=== PATIENT | male | born 1965 | race Caucasian/White ===

== ENCOUNTER 2018-12-15 16:20 | Emergency (ER) | payer OTHER ==
[2018-12-15 16:40] VITALS: PULSE 90; RESP 20; TEMP 98.2; O2SAT 98
--- NOTE | 2018-12-15 17:11 | ED PDOC ---
HPI: General Adult Time Seen by Provider: 12/15/18 17:05 Chief Complaint (Nursing): ENT Problem Chief Complaint (Provider): ENT Problem History Per: Patient History/Exam Limitations: no limitations Onset/Duration Of Symptoms: Days (x2-3 weeks) Current Symptoms Are (Timing): Still Present Additional Complaint(s): 53 year old male presents to the ED with left ear pain and difficulty hearing. Patient notes mild nasal congestion but denies any fever or chills. He has attempted to remove ear wax with q tip. PMD: none provided Past Medical History Reviewed: Historical Data, Nursing Documentation, Vital Signs Vital Signs: Last Vital Signs Temp 98.2 F 12/15/18 16:37 Pulse 90 12/15/18 16:37 Resp 20 12/15/18 16:37 BP Pulse Ox 98 12/15/18 16:37 - Family History Family History: States: Unknown Family Hx - Immunization History Hx Tetanus Toxoid Vaccination: No Hx Influenza Vaccination: No Hx Pneumococcal Vaccination: No - Home Medications Home Medications: Ambulatory Orders Medication Instructions Recorded Loratadine [Claritin 24Hr] 10 mg PO DAILY #30 tab 01/08/14 Mometasone Furoate [Nasonex] 2 spray NS DAILY #1 spr 01/08/14 Pepto Diarrhea Control 04/01/14 Carbamide Peroxide [Debrox Ear 5 drop AU BID #1 bottle 09/26/14 Drops] Carbamide Peroxide [Debrox Ear 10 drop BID #1 bottle 12/15/18 Drops] Cetirizine HCl [Zyrtec] 10 mg PO DAILY #15 tab.rapdis 12/15/18 Fluticasone Nasal [Flonase] 2 spray NS ONCE #1 bottle 12/15/18 - Allergies Allergies/Adverse Reactions: Allergies Allergy/AdvReac Type Severity Reaction Status Date / Time No Known Allergies Allergy Verified 12/15/18 16:37 Review of Systems ROS Statement: Except As Marked, All Systems Reviewed And Found Negative ENT: Positive for: Ear Pain (and difficulty hearing) Physical Exam - Reviewed Nursing Documentation Reviewed: Yes Vital Signs Reviewed: Yes - Physical Exam Appears: Positive for: No Acute Distress Head Exam: Positive for: ATRAUMATIC, NORMOCEPHALIC Skin: Positive for: Normal Color, Warm, Dry Eye Exam: Positive for: Normal appearance, EOMI, PERRL ENT: Positive for: Other (cerumen impacted, moderate cerumen removed with curette, bleeding noted along ear canal ) Respiratory: Positive for: Normal Breath Sounds Extremity: Positive for: Normal ROM (upper and lower) Neurological/Psych: Positive for: Awake, Alert, Oriented - ECG O2 Sat by Pulse Oximetry: 98 (RA) Pulse Ox Interpretation: Normal Medical Decision Making Medical Decision Making: Scribe Attestation: Documented by Rubi Justice acting as a scribe for Richar Caldear PA-C. Provider Scribe Attestation: All medical record entries made by the Scribe were at my direction and personally dictated by me. I have reviewed the chart and agree that the record accurately reflects my personal performance of the history, physical exam, medical decision making, and the department course for this patient. I have also personally directed, reviewed, and agree with the discharge instructions and disposition. Disposition - Clinical Impression Clinical Impression: Impacted cerumen, left ear, Seasonal allergies - Patient ED Disposition Is Patient to be Admitted: No - Disposition Referrals: [facility] [Outside] Disposition: Routine/Home Disposition Time: 17:15 Condition: FAIR Prescriptions: Carbamide Peroxide [Debrox Ear Drops] 10 drop BID #1 bottle Cetirizine HCl [Zyrtec] 10 mg PO DAILY #15 tab.rapdis Fluticasone Nasal [Flonase] 2 spray NS ONCE #1 bottle Instructions: Seasonal Allergies in Adults, Ear Wax Impaction (DC) Print Language: BULGARIAN
== END 2018-12-15 17:47 | disposition home or self-care (01) ==
LOC: H.ER 16:20
DX: H61.22 Impacted cerumen, left ear (principal); J30.2 Other seasonal allergic rhinitis